=== PATIENT | female | born 1950 | race Caucasian/White ===

== ENCOUNTER 2016-12-06 10:48 | Day surgery (SDC) | payer MEDICARE ==
[~2016-12-06] VITALS: Ht 157.5 cm; Wt 88.6 kg
[~2016-12-06 10:48] MED LIST: 0.9% Sodium Chloride 1,000 ML IV PRN; ASPI-973 PO; FLUO20TA28 PO; GLPZ5T PO; LISI10TA PO; METF500T4 PO; SIMV40TA5 PO; Sodium Chloride LOK Flush 10 mL Syringe IV PRN; TIMO5DRO26 OP; fentaNYL-PF 50 mCg/mL 2 mL Inj IVPUSH PRN
[2016-12-06 11:11] VITALS: BP 125/62; PULSE 71; RESP 12; O2SAT 94
[2016-12-06 12:33] VITALS: BP 94/61; PULSE 61; RESP 16; O2SAT 93
--- NOTE | 2016-12-06 12:34 | PCM.ENDCOL ---
Colonoscopy Date of Service: Dec 06, 2016 Physician Darci Bergman MD Pre Procedure Diagnosis: FIT positive stools Post Procedure Dx & Findings: Polyp hemorrhoids diverticuli Procedure Colonoscopy Prep adequate After unremarkable rectal examination the Olympus video colonoscope was inserted patient's anal canal and was advanced to cecum. Landmarks were identified including the ileocecal valve and appendiceal orifice. Scope was withdrawn systematically. Visualized colonic mucosa showed healthy shiny mucosa with normal healthy-appearing vasculature. In the cecum, there was a 1 mm polyp which was removed completely using cold forceps. On the ileocecal valve there was a prominence with positive pillow sign consistent with lipoma. Biopsy obtained. The biopsies site showed lipomatous material. The ascending colon, there were two 2-3 mm polyps which were removed completely using cold snare. In the transverse colon, there was a 3 cm mucosal prominence. Positive pillow sign positive pain. The biopsies site showed lipomatous material. In the descending colon and the sigmoid colon, there were total of 4 polyps. These are all resected completely using cold snare. They were about 2-3 mm in size. In the sigmoid colon, patient had several small diverticuli.In the rectum retroflexion was done which showed hemorrhoids. Anal canal was inspected carefully on the way out and hemorrhoids noted. 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 Patient monitoring Continuous pulse oximetry, cardiac monitoring, blood pressure monitoring, IV access, and oxygen at 2L per nasal cannula. Periprocedural Fentanyl: Fentanyl 100mcg Incrementally Midazolam: Midazolam 4mg Incrementally Complications There were no periprocedural complications identified. Post Procedure Plan Post Procedure Recommendations 1. Restrict activities today. 2. Resume normal activities in the morning. 3. Resume medications. 4. Patient informed of normal post procedure side effects as bloating, drowsiness, blood streaking in the stool. 5. average risk CRCS. If colon polyps come back as: -Hyperplastic- can repeat colonoscopy in 10 years -Tubular adenoma- repeat colonoscopy in 5 years -Tubulovillous/villous adenoma- repeat colonoscopy in 3 years -If any dysplasia- return to clinic as soon as possible 6. Please don't hesitate to call me with any questions. Darci Bergman MD Dec 06, 2016 12:34
[2016-12-06 12:50] VITALS: BP 92/59; PULSE 67; RESP 14; O2SAT 94
[2016-12-06 12:54] VITALS: BP 110/69; PULSE 60; RESP 12; O2SAT 95
--- NOTE | 2016-12-07 14:03 | PATH ---
SURGICAL PATHOLOGY Attending Physician:Darci Bergman M.D. CASE STATUS: Signed Out PATIENT NAME: TRINI KLEIN PID: [id number] : 1950 DATE COLLECTED:12/06/2016 21:25 SPECIMEN: 1: Colon, Biopsy 2: Colon, Biopsy 3: Ileum, Biopsy 4: Colon, Biopsy 5: Colon, Biopsy CLINICAL HISTORY: 1). CECAL POLYP X1 2). ASCENDING POLYP X2 3). ILEO CECAL VALVE BX 4). TRANSVERSE BIOPSY 5). DESCENDING POLYP X4 FINAL DIAGNOSIS: 1.CECAL POLYP: TUBULAR ADENOMA. 2.ASCENDING POLYPS: TUBULAR ADENOMAS, 2. 3.ILEOCECAL VALVE BIOPSY: ILEOCOLONIC MUCOSA WITH NO DIAGNOSTIC ALTERATIONS. NEGATIVE FOR INFLAMMATION, DYSPLASIA AND MALIGNANCY. 4.TRANSVERSE BIOPSY: COLONIC MUCOSA WITH NO DIAGNOSTIC ALTERATIONS. NEGATIVE FOR INFLAMMATION, DYSPLASIA AND MALIGNANCY. 5.DESCENDING POLYPS: TUBULAR ADENOMA, MULTIPLE FRAGMENTS. FOUR POLYPS REMOVED. ICD10 CODE D12.0 D12.2 D12.4 GROSS DESCRIPTION: The specimen is received in five formalin filled containers labeled with the patient's name. 1). The specimen is sublabeled "cecal polyp" and consists of a 0.2 x 0.2 x 0.2 CM portion of tissue which is entirely submitted in cassette 1A. 2). The specimen is sublabeled "ascending polyp" and consists of multiple portions of tissue which aggregate to 0.6 x 0.6 x 0.4 CM. The specimen is entirely submitted in cassette 2A. 3). The specimen is sublabeled "ileal-cecal valve" and consists of a 0.3 x 0.3 x 0.2 CM portion of tissue which is entirely submitted in cassette 3A. 4). The specimen is sublabeled "transverse" and consists of a 0.3 x 0.3 x 0.3 CM portion of tissue which is entirely submitted in cassette 4A. 5). The specimen is sublabeled "descending polyps" and consists of multiple portions of tissue and or debris which aggregate to 0.6 0.4 x 0.2 CM. The specimen is entirely submitted in cassette 5A. 12/06/2016 DAC MICRO DESCRIPTION: See diagnosis. ICD-9 CODES: CPT CODES: 1: 83217 2: 41023 3: 07057 4: 42641 5: 18608 Electronically Signed Out Aiyana Ball MD [facility] [address], [place] [address] Technical component performed at [facility], [address], [place], [address]
== END 2016-12-06 23:59 | disposition home or self-care (01) ==
LOC: END 10:48
PROVIDERS: ATTEND Internal Medicine
DX: D12.0 Benign neoplasm of cecum (principal); D12.2 Benign neoplasm of ascending colon; D12.3 Benign neoplasm of transverse colon; K57.30 Diverticulosis of large intestine without perforation or abscess without bleeding; K64.8 Other hemorrhoids; K92.1 Melena; I10 Essential (primary) hypertension; F17.210 Nicotine dependence, cigarettes, uncomplicated; Z79.82 Long term (current) use of aspirin; Z79.899 Other long term (current) drug therapy